=== PATIENT | female | born 1970 | race Caucasian/White ===

== ENCOUNTER → 2023-06-19 15:04 | Outpatient (BNV) | payer OTHER, SELFPAY ==
--- NOTE | 2023-06-19 15:04 | MHC.OFFVIS ---
Intake Intake Visit Reasons: left knee pain Intake Note: Erin presents today VIA telephone due to a left knee injury sustained while playing tennis Allergies No Known Allergies Allergy (Verified 06/19/23 15:05) HPI left knee pain HPI Details 53 yo female present via telehealth visit for left knee pain. She states she was playing tennis when she felt her patella sublux. She immediately felt pain and developed swelling. She experiences medial sided pain and sensation of catching / locking. She has difficulty with applying full weight. Review of Systems Const All systems reviewed & are unremarkable except as noted in HPI and below Physical Exam Resp Effort & Inspection: normal respiratory effort and able to speak in complete sentences Assessment & Plan Assessment & Plan (1) Internal derangement of left knee: Code(s): M23.92 - Unspecified internal derangement of left knee Plan: An MRI of the Left knee has been ordered to further evaluate the integrity of the meniscus and surrounding structures. She was also fit for an off the shelf reaction knee brace and given a rx for ceclebrex. We will review the MRI results and discuss once obtained. Telehealth Telehealth Location of provider rendering services: practice address Location of patient: address on file Patient Identification confirmed using: Name, : Yes Telehealth method: voice only Patient verbally consented to treatment: Yes Patient verbally consented to billing insurance company: Yes Patient informed of any privacy concerns related to visit: Yes Coding Level of Care Code Tele [facility] Pt Level 3 (19350) Diagnoses Internal derangement of left knee M23.92
== END ==
PROVIDERS: PCP Family Medicine
DX: M23.92 Unspecified internal derangement of left knee (principal)
CPT/HCPCS: 99203

== ENCOUNTER 2023-06-21 19:58 | Outpatient (REF) | payer OTHER, SELFPAY ==
--- NOTE | ~2023-06-21 | MR_ITS ---
EXAMINATION: MR KNEE WITHOUT CONTRAST, LEFT CLINICAL INFORMATION: Left knee pain. COMPARISON: None available. TECHNIQUE: MRI of the knee without contrast was performed using routine sequences on a high-field scanner. FINDINGS: MENISCI: Medial Meniscus: Intact. Lateral Meniscus: Intact. LIGAMENTS: Cruciate: Intact. Collateral: Edema surrounds the proximal MCL likely representing a grade 1 sprain. The lateral collateral ligament complex appears intact. EXTENSOR MECHANISM: Intact. Borderline patella shailesh. Soft tissue edema between the proximal patella tendon and lateral trochlea suggests chronic patellofemoral malalignment/friction syndrome. ARTICULAR CARTILAGE/BONE: Patellofemoral Compartment: There is a 9 mm area of [id number]-[id number] cartilage loss of the central trochlea. Focal cartilage signal heterogeneity and surface irregularity of the central patella. Small partial-thickness defect with subchondral marrow edema of the lateral trochlea superolaterally. Medial Compartment: Normal. Lateral Compartment: Normal. JOINT FLUID AND BURSAE: Small joint effusion and Merlos's cyst extending proximally, possibly recently ruptured, with surrounding soft tissue edema throughout the popliteal fossa. MR/MR knee LT wo con IMPRESSION: 1. No meniscal tear. 2. Probable grade 1 proximal MCL sprain. 3. Mild patellofemoral compartment osteoarthritis with a small joint effusion and Merlos's cyst which may be recently ruptured. Surrounding soft tissue edema throughout the popliteal fossa may reflect recent injury. 4. Borderline patella shailesh with soft tissue edema between the patella tendon and lateral trochlea suggesting chronic patellofemoral malalignment/friction syndrome.
== END 2023-06-21 19:59 | disposition home or self-care (01) ==
LOC: HO.MRI 19:58
PROVIDERS: PCP Student in an Organized Health Care Education/Training Program; Visit Provider Physician Assistant
DX: M17.12 Unilateral primary osteoarthritis, left knee (principal); M23.92 Unspecified internal derangement of left knee
CPT/HCPCS: 73721

== ENCOUNTER 2023-07-01 10:54 | Outpatient (RCR) | payer OTHER, SELFPAY ==
--- NOTE | 2023-07-01 15:34 | MHC.PT.EP ---
[facility] [place] Office [place] Office [place] Office [address] Jan Hanley [address] [phone] F: [phone] F: [phone] F: [phone] F: [phone] Physical Therapy Plan of Care Date of Evaluation: Date of Surgery: Diagnosis: SPRAIN OF LEFT MEDIAL COLLATERAL LIG, OA Lt KNEE, SANZ'S CYST, SUBLUXED PATELLA-> QUAD STRENGTH, POSTERIOR CHAIN TRAIN, CORE STAB Assessment: 53 YO FEMALE REF TO PT W Lt MEDIAL COLLAT LIG SPRAIN AND (+) PFPS. 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 THE Pt IS A VERY GOOD CANDIDATE FOR SKILLED PT TO ADDRESS THE ABOVE AND INSTRUCT HER ON SELF -SX MGMT TECHN/ TAPING TECHN. Frequency and Duration: The patient will be seen 2 x WK x 5 WKS Short Term Goals: *IMPROVE LUMBOPELVIC STAB TO REDUCE LLI INFLUENCE ON Lt KNEE *INCR STRENGTH Lt QUAD/ ANGELA GLUTES *DECR Lt KNEE PAIN TO 2-3/10 W [facility]TS/ ADLs [employer] Goals: *Pt INDEP W HEP AND SELF-SX MGMT TECHN, INCLUDING KT APPLIC *Lt LE STRENGTH INCR BY 1/2 - 1 GRADE Treatment Plan: Modalities to reduce pain, spasms and effusion. Manual therapy to restore motion and function. Therapeutic exercise to improve strength and flexibility. Neuromuscular re-education for posture and balance. Therapeutic activities to return to functional activities of daily living. Electronically signed by: YAHAIRA SOMERS,PT Please sign and return to therapist. Thank you for your referral.
--- NOTE | 2023-07-22 08:16 | MHC.PT.DC ---
[facility] [place] Office [place] Office [place] Office [address] Jan Hanley [address] [facility] [phone] F: [phone] F: [phone] F: [phone] F: [phone] Physical Therapy Discharge Report Diagnosis: SPRAIN OF LEFT MEDIAL COLLATERAL LIG, OA Lt KNEE, SANZ'S CYST, SUBLUXED PATELLA-> QUAD STRENGTH, POSTERIOR CHAIN TRAIN, CORE STAB Date of Surgery: Date of Evaluation: 07/01/23 Date of Discharge: 07/22/23 Treatments to Date: 1 Cancellations to Date: 5 No Shows to Date: 0 Discharge Status: Patient Elected to Stop Visit Non-compliance Discharge Summary: THE Pt WAS A GOOD PT CANDIDATE TO DEV A PROGRESSIVE HEP , REDUCE DISCOMFORT, AND ADDRESS HER LEFT KNEE/ PFPS. 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 SHE IS D/C'D THIS DATE DUE TO THE PT DEPT ATTENDANCE POLICY. Electronically signed by: YAHAIRA SOMERS,PT Please sign and return to therapist. Thank you for your referral.
== END 2023-07-22 08:16 | disposition home or self-care (01) ==
LOC: HO.PT 10:54
PROVIDERS: PCP Student in an Organized Health Care Education/Training Program; Visit Provider Physician Assistant
DX: S83.412D Sprain of medial collateral ligament of left knee, subsequent encounter (principal); M17.12 Unilateral primary osteoarthritis, left knee
CPT/HCPCS: 97110; 97140; 97161